=== PATIENT | male | born 1965 | race Caucasian/White ===

== ENCOUNTER 2018-02-12 14:13 | Inpatient (IN) | payer OTHER ==
[~2018-02-12] VITALS: Ht 170.2 cm; Wt 82.6 kg
[2018-02-12 14:23] VITALS: Ht 170.2 cm; Wt 82.6 kg
[2018-02-12 15:08] LABS: BASOPHIL % 0.7 % (0-2); PLATELET COUNT 347 x10^3mcL (130-400); RED CELL DISTRIBUTION WIDTH 13.5 % (11.5-14.5)
[2018-02-12 15:22] LABS: CARBON DIOXIDE 28.2 mmol/L (21-32); CHLORIDE SERUM 102 mmol/L (98-107); CREATININE SERUM 0.9 mg/dL (0.7-1.3); GFR1 > 60 mL/min; GLUCOSE SERUM 100 mg/dL (74-106); POTASSIUM SERUM 3.9 mmol/L (3.5-5.1); SODIUM SERUM 137 mmol/L (136-145)
[2018-02-12 15:35] LABS: ALBUMIN 3.5 g/dL (3.4-5.0); ALKALINE PHOSPHATASE 84 U/L (46-116); ALT/SGPT 45 U/L (16-63); AST/SGOT 15 U/L (15-37); BILIRUBIN TOTAL 0.2 mg/dL (0.20-1.00); HDL CHOLESTEROL 41 mg/dL (40-60); LIPASE 195 IU/L (73-393); PHOSPHOROUS 3.4 mg/dL (2.5-4.9); TOTAL PROTEIN, SERUM 7.4 g/dL (6.4-8.2); URIC ACID 5.1 mg/dL (3.5-7.2)
[2018-02-12 15:36] LABS: CHOLESTEROL 211 mg/dL (<200)
[2018-02-12 16:52] LABS: microscopic required? NO
[2018-02-12 16:57] LABS: UA SPECIFIC GRAVITY 1.025 (1.005-1.035); urine erythrocyte NEGATIVE (NEGATIVE)
[2018-02-12 17:16] LABS: T3 TOTAL 0.93 ng/mL
[2018-02-12 17:24] LABS: AMPHETAMINE QUAL UR NONE DETECTED (See below)
[2018-02-12 17:28] LABS: FREE T4 0.73 ng/dL (0.76-1.46); FREE THYROXINE INDEX 1.5 ug/dL (1.4-4.5); T4(THYROXINE) 4.9 ug/dL (4.7-13.3)
[2018-02-12 18:43] VITALS: BP 96/58
[2018-02-12 21:19] VITALS: BP 104/62
[2018-02-13 04:51] VITALS: BP 124/81
[2018-02-13 06:32] LABS: BASOPHIL % 0.4 % (0-2); PLATELET COUNT 300 x10^3mcL (130-400); RED CELL DISTRIBUTION WIDTH 13.7 % (11.5-14.5)
[2018-02-13 06:52] LABS: CALCIUM 8.3 mg/dL (8.5-10.1); CARBON DIOXIDE 29.4 mmol/L (21-32); CHLORIDE SERUM 103 mmol/L (98-107); GFR1 > 60 mL/min; GLUCOSE SERUM 115 mg/dL (74-106); MAGNESIUM 2.1 mg/dL (1.8-2.4); PHOSPHOROUS 3.2 mg/dL (2.5-4.9); POTASSIUM SERUM 4.1 mmol/L (3.5-5.1); SODIUM SERUM 141 mmol/L (136-145)
== END 2018-02-13 08:06 | disposition left against medical advice (07) | DRG 243 ==
LOC: ED 14:13 → DU 16:28
PROVIDERS: Emergency Medicine; Family Medicine
DX: K21.9 Gastro-esophageal reflux disease without esophagitis (principal); E78.00 Pure hypercholesterolemia, unspecified; E78.5 Hyperlipidemia, unspecified; I16.9 Hypertensive crisis, unspecified; Z82.49 Family history of ischemic heart disease and other diseases of the circulatory system; Z83.79 Family history of other diseases of the digestive system; F17.200 Nicotine dependence, unspecified, uncomplicated; Z83.3 Family history of diabetes mellitus; I10 Essential (primary) hypertension; R73.03 Prediabetes; Z53.21 Procedure and treatment not carried out due to patient leaving prior to being seen by health care provider
CPT/HCPCS: 83880; 84439; J7030; Q0092